=== PATIENT | male | born 1975 | race Caucasian/White ===

== ENCOUNTER 2017-12-25 07:55 | Emergency (ER) | payer MEDICAID, SELFPAY ==
[2017-12-25 08:04] VITALS: BP 111/72; PULSE 70; RESP 18; TEMP 36.7; O2SAT 98
[2017-12-25 08:56] LABS: Bilirubin Negative (Negative); Blood Negative (Negative); Clarity Clear; Glucose Negative (Negative); Ketones Negative (Negative); Leukocyte Esterase Negative (Negative); Nitrite Negative (Negative); Specific Gravity 1.025 (1.005-1.025); Urobilinogen 0.2 EU/dL (Up TO 0.2); pH 5.5 (5-8)
--- NOTE | 2017-12-25 09:10 | NUR.NOTE ---
Post void bladder scan reported to Dr Hernandez at 48 mL Nursing Note:
[2017-12-25] MEDS: Acetaminophen 500 MG TAB 1000 MG PO (09:15)
[2017-12-25] MEDS: Lidocaine 5% Patch 1 PATCH TP (09:15)
[2017-12-25] MEDS: Ibuprofen 800 MG TAB PO (09:15)
--- NOTE | 2017-12-25 09:24 | W.ED.GENAD ---
Discharge Plan Disposition Patient Disposition: HOME Condition: Good Discharge Details Chief Complaint: Nk/Back Pain Clinical Impression: Lumbago Primary Care Provider: Buddy Gomez ED Provider: Anselmo Hernandez Home Meds and New Rx's Prescriptions: New acetaminophen [Mapap Extra Strength] 500 MG tablet 1,000 mg PO Q6H 5 Days Qty: 60 RF: 0 lidocaine [Lidoderm] 1 PATCH patch 1 ea Topical Q24H Qty: 4 RF: 0 ibuprofen [Motrin IB] 200 MG tablet 600 mg PO Q6H 5 Days Qty: 60 RF: 0 cyclobenzaprine 10 mg tablet 10 mg PO TID Qty: 21 RF: 0 Discharge Instructions Instructions: Low Back Strain (ED) Additional Instructions: Please take medications as directed. Do not take the Flexeril/cyclobenzaprine if you were going to operate heavy machinery, shoot firearms, climb a ladder, work at elevated heights, or drive a vehicle. If you notice any numbness or tingling in your groin, weakness, or other abnormalities please return immediately. If you notice any bowel or bladder incontinence please return immediately. Do not lift anything greater than 10 pounds. If you notice any worsening of your symptoms, or any new symptoms such as vomiting, diarrhea, fever, chills, shortness of breath, chest pain, numbness, weakness, or fainting , please return immediately to the emergency department for reevaluation. Please follow up with your primary care provider as soon as possible for reassessment and reevaluation. As always, it was a pleasure participating in your medical care today. Stand Alone Forms: Work Release Referrals: Buddy Gomez MD [Primary Care Provider] - Discharge Data Discharge Date/Time-TO BE ENTERED AT DEPARTURE: 12/25/17 09:35 Medical Decision Making This is a pleasant 42-year-old male who presents with lower back pain, it occurred after he had been doing multiple episodes of bending and lifting over the last 24 hours. He has signs and symptoms of paraspinal low back pain. No evidence of radiculopathy, no neurologic deficits, no red flags concerning for cauda equina syndrome. Bladder scan was performed post void and he had no retained urine. Urinalysis shows no evidence of UTI or urolithiasis. The patient's symptoms improved notably with Lidoderm patch and NSAIDs. I feel his symptoms are consistent with a low back muscle sprain, with no red flags I do not feel that there is any indication for imaging at this time. Patient will be discharged home with close follow-up, we had long discussion regarding red flags for which to return the patient understands. I have extensively reviewed the treatment plan and discharge instructions with the patient and their family. I have addressed all patient concerns at this time. The patient and family was made aware of what symptoms to monitor for that would warrant a return to the emergency department. Discussed the plan with the patient and family, they demonstrate verbal understanding and agreement with our assessment and plan at this time. HPI General Date/Time Provider Initiated Documentation: 12/25/17 08:15. HPI Narrative: This is a 42-year-old male with a past medical history of kidney stones, and prior chronic back pain, who presents today for evaluation of back pain. Patient states that yesterday morning he had been doing a lot of lifting for his . He had been working in confined spaces with a significant amount of bending over, and going up and down. He states that initially his back was sore that evening however when he woke up this morning it was notably worse. It goes from the left side to the right side but he denies any pain in the center. It is made worse with movement, it is improved by heating and ibuprofen. States that this feels atypical from his history of kidney stones. He denies any radiation down his legs, any numbness or tingling in his groin, any bowel or bladder incontinence. He denies any history of cancer, recent trauma, chronic steroid use, or other complaints. He denies any history of IV drug use, or fevers or chills. Patient has no other complaints at this time. Related Data Home Medications Medication Instructions Recorded Confirmed acetaminophen [Mapap Extra 1,000 mg PO Q6H 5 Days #60 tab 12/25/17 Strength] cyclobenzaprine 10 mg PO TID #21 tab 12/25/17 ibuprofen [Motrin Ib] 600 mg PO Q6H 5 Days #60 tab 12/25/17 lidocaine [Lidoderm] 1 ea TOPICAL Q24H #4 patch 12/25/17 Previous Rx's Medication Instructions Recorded acetaminophen [Mapap Extra 1,000 mg PO Q6H 5 Days #60 tab 12/25/17 Strength] cyclobenzaprine 10 mg PO TID #21 tab 12/25/17 ibuprofen [Motrin Ib] 600 mg PO Q6H 5 Days #60 tab 12/25/17 lidocaine [Lidoderm] 1 ea TOPICAL Q24H #4 patch 12/25/17 General Stated Complaint: Nk/Back Pain RAGHAVENDRA: 4 Review of Systems Review of Systems All systems reviewed & are unremarkable except as noted in HPI and below PFSH Social History Smoking/Tobacco Use Status: Never Exam Narrative Exam Narrative: 1.Const: Well-nourished, Well-developed, appearing stated age 2.Eyes: PERRL, no conjunctival injection, and symmetrical lids. 3.ENT: Atraumatic external nose and ears. Moist MM. Neck: Symmetric, trachea midline, No thyromegaly. 4.CVS: +S1/S2, No murmurs or gallops. Peripheral pulses 2+ and equal in all extremities. Brisk capillary refill in all extremities. 5.RESP: Unlabored respiratory effort. Clear to auscultation bilaterally. No wheezes rales or rhonchi 6.GI: Soft, Nontender/Nondistended, No hepatosplenomegaly. No guarding or rebound. 7.MSK: Normocephalic/Atraumatic, Extremities w/o deformity or ttp No cyanosis or clubbing, Normal movement of all extremities. No midline tenderness to palpation over the CTLS spine. Normal ROM in flexion, extension, side bend, and rotation. Patient has +5 out of 5 strength in the lower extremities in dorsiflexion and plantarflexion, knee flexion and extension, hip flexion and extension. There is +2 over 2 dorsalis pedis pulses bilaterally. There is normal sensation to the skin with light touch at the foot, knee, and hip. Normal saddle sensation. Good sensation over the deep sural nerve area bilaterally. Rectal exam demonstrated normal rectal tone and perianal sensation. Reflexes are +2 over 4 in the patellar reflex bilaterally. +5 out of 5 strength in the medial, ulnar, radial nerve distribution bilaterally in the hands as well as intact light touch sensation to these dermatomes on the hands. Patient does have paraspinal tenderness over his erector spinae muscles, notable evidence of paraspinal muscle spasm. No CVA tenderness. No significant worsening of symptoms with straight leg raise bilaterally. 8.Skin: Warm, Dry. No rashes or lesions. 9.Neuro: cardiovascular operating room nurse II-XII grossly intact. Sensation grossly intact, no focal neurologic deficits. All 6 cardinal planes of vision are fully intact. No evidence of rotatory or vertical nystagmus. The patient demonstrated a normal [id number], good dexterity. There was no evidence of dysdiadochokinesia. Patient was able to ambulate without difficulty. There was no wide-based gait. Romberg, and [id number] are both normal on testing. Sensation was intact bilaterally as well as muscle strength bilaterally for all extremities. Patient was able to verbalize butter cup with no slurring, or miss pronunciation. 10.Psych: (AAO) x3. Appropriate mood and affect Course Vital Signs Temperature 36.7 C 12/25/17 08:04 Pulse 70 12/25/17 08:04 Respiratory Rate 18 12/25/17 08:04 Blood Pressure 111/72 12/25/17 08:04 Pulse Oximetry 98 12/25/17 08:04 Temperature 36.7 C 12/25/17 08:04 Temperature Source Temporal Artery Scan 12/25/17 08:04 Pulse 70 12/25/17 08:04 Respiratory Rate 18 12/25/17 08:04 Respiratory Effort 12/25/17 08:06 Blood Pressure 111/72 12/25/17 08:04 Blood Pressure Position Sitting 12/25/17 08:04 Pulse Oximetry 98 12/25/17 08:04 Oxygen Delivery Method Room Air 12/25/17 08:04 Oxygen Flow Rate 0 12/25/17 08:04 Pain Level 8 12/25/17 08:04 Lab/Test Results Lab/Test Results: Laboratory Tests Range/Units 12/25/17 08:50 Urine Color (Yellow) Yellow Urine Clarity Clear Urine pH (5-8) 5.5 Ur Specific Derwood (1.005-1.025) 1.025 Urine Protein (Negative) mg/dL Negative Urine Ketones (Negative) mg/dL Negative Urine Blood (Negative) Negative Urine Nitrite (Negative) Negative Urine Bilirubin (Negative) Negative Urine Urobilinogen (Up TO 0.2) EU/dL 0.2 Ur Leukocyte Esterase (Negative) Negative Urine Glucose (Negative) mg/dL Negative
[2017-12-25 09:47] VITALS: BP 111/72; PULSE 70; RESP 18; TEMP 36.7; O2SAT 98
== END 2017-12-25 09:35 | disposition home or self-care (01) ==
PROVIDERS: Emergency Provider Student in an Organized Health Care Education/Training Program; PCP Internal Medicine
DX: M54.5 Low back pain (principal)
CPT/HCPCS: 99283; 81003

== ENCOUNTER 2018-12-16 17:43 | Outpatient (REF) | payer MEDICAID, SELFPAY ==
[2018-12-16 21:22] LABS: HCT 44.4 % (40.0-50.0); HGB 15.2 g/dL (13.5-17.5); Mean Corp. HGB Concentration 34.2 g/dL (32.0-36.0); Mean Corpuscular Hemoglobin 29.1 pg (27.0-33.0); Mean Corpuscular Volume 85.1 fL (80-95); Mean Platelet Volume 11.1 fL (8.0-11.0); Platelet Count 228 x1000/uL (130-400); RBC 5.22 m/cumm (4.50-6.00); RBC Distribution Width 12.8 % (11.8-14.1); White Blood Cell Count 7.96 k/cumm (4.4-10.8)
[2018-12-16 21:38] LABS: BUN 9 mg/dL (7-18); CREATININE 1.01 mg/dL (0.70-1.30); Calcium 9.6 mg/dL (8.5-10.1); Chloride 106 mmol/L (98-107); Glucose 91 mg/dL (70-100); Potassium 4.2 mmol/L (3.5-5.1); Sodium 142 mmol/L (136-145)
== END 2018-12-16 18:03 ==
LOC: NCHCN 17:43
PROVIDERS: PCP Internal Medicine; Visit Provider Internal Medicine
DX: J20.9 Acute bronchitis, unspecified (principal); R07.89 Other chest pain; K62.5 Hemorrhage of anus and rectum
CPT/HCPCS: 80048; 85027

== ENCOUNTER 2019-09-15 10:37 | Emergency (ER) | payer MEDICAID, SELFPAY ==
[2019-09-15 10:42] VITALS: BP 149/87; PULSE 56; RESP 16; TEMP 36.5; O2SAT 100
--- NOTE | 2019-09-15 10:45 | ED.GENADUL_ITS ---
Discharge Plan Disposition Patient Disposition: HOME Condition: Stable Discharge Details Chief Complaint: RashLesion Clinical Impression: Hives Primary Care Provider: Buddy Gomez ED Provider: Toshia Torres Home Meds and New Rx's Prescriptions: New prednisone 20 mg tablet 40 mg PO DAILY Qty: 14 RF: 0 Continued lidocaine [Lidoderm] 1 PATCH patch 1 ea Topical Q24H Qty: 4 RF: 0 cyclobenzaprine 10 mg tablet 10 mg PO TID Qty: 21 RF: 0 Discharge Instructions Instructions: Urticaria (ED) Additional Instructions: Take steroids as directed Follow-up with primary care provider Referrals: Buddy Gomez MD [Primary Care Provider] - Medical Decision Making Patient presents with generalized hives with no known new exposure he has had a symptoms for 3 weeks and has no respiratory symptoms or other issues. He has been using Benadryl without good effect. We will treat him with steroids and refer to PCP for possible further testing as warranted Medical Records Medical records reviewed: Yes I reviewed the patient's medical records. HPI General Mode of arrival: ambulatory . Date/Time Provider Initiated Documentation: 09/15/19 10:41 . Limitations to Documentation: no limitations . Information obtained by: patient . HPI Narrative: Patient presents to the emergency department with a 3-week history of hives that started on his bilateral torso. He has been using Benadryl with no relief. He has not identified any new exposures. There is been no new medication no new laundry soap diet is consistent. He now has hives on his arms legs back in addition to his torso and abdomen. He has had no fevers no other complaints. He has no difficulty swallowing sore throat shortness of breath or wheezing. Related Data Home Medications Medication Instructions Recorded Confirmed cyclobenzaprine 10 mg PO TID #21 tab 12/25/17 lidocaine [Lidoderm] 1 ea TOPICAL Q24H #4 patch 12/25/17 prednisone 40 mg PO DAILY #14 tab 09/15/19 Previous Rx's Medication Instructions Recorded cyclobenzaprine 10 mg PO TID #21 tab 12/25/17 lidocaine [Lidoderm] 1 ea TOPICAL Q24H #4 patch 12/25/17 prednisone 40 mg PO DAILY #14 tab 09/15/19 Allergies Allergy/AdvReac Type Severity Reaction Status Date / Time No Known Allergies Allergy Unverified 09/15/19 10:45 General Stated Complaint: RashLesion RAGHAVENDRA: 4 Review of Systems Constitutional Constitutional: Denies fever(s) Integumentary/Breasts Skin/Breast: Reports rash (Consistent with hives, generalized) PFSH Social History Smoking/Tobacco Use Status: Never Drug use: Never Do you feel safe in your relationship?: Yes Course Vital Signs Vital signs: Vital Signs Temperature 36.5 C 09/15/19 10:42 Pulse 56 L 09/15/19 10:42 Respiratory Rate 16 09/15/19 10:42 Blood Pressure 149/87 H 09/15/19 10:42 Pulse Oximetry 100 09/15/19 10:42 Temperature 36.5 C 09/15/19 10:42 Temperature Source Skin 09/15/19 10:42 Pulse 56 L 09/15/19 10:42 Respiratory Rate 16 09/15/19 10:42 Blood Pressure 149/87 H 09/15/19 10:42 Blood Pressure Position Sitting 09/15/19 10:42 Pulse Oximetry 100 09/15/19 10:42 Oxygen Delivery Method Room Air 09/15/19 10:42 Oxygen Flow Rate 0 09/15/19 10:42 Pain Level 0 09/15/19 10:42
== END 2019-09-15 11:16 | disposition home or self-care (01) ==
PROVIDERS: Emergency Provider Nurse Practitioner Acute Care; PCP Internal Medicine
DX: L50.8 Other urticaria (principal)
CPT/HCPCS: 99283; 99281

== ENCOUNTER 2020-01-19 13:22 | Outpatient (REF) | payer MEDICAID, SELFPAY ==
[2020-01-19 20:58] LABS: Abs Immature Grans 0.04 10^3/uL (0.0-0.06); Absolute Basophil Count 0.01 10^3/uL (0.0-0.2); Absolute Eosinophil Count 0.12 10^3/uL (0.0-0.7); Absolute Lymphocyte Count 2.33 10^3/uL (1.2-3.4); Absolute Monocyte Count 0.71 10^3/uL (0.1-0.8); Absolute Neutrophil Count 6.17 10^3/uL (1.2-6.7); Basophils % 0.1; Eosinophils % 1.3; HGB 15.8 g/dL (13.5-17.5); Immature Grans % 0.4; Lymphocytes % 24.8; MCH 29.6 pg (27.0-33.0); MCHC 34.3 % (32.0-36.0); MCV 86.1 fL (80-95); MPV 11.3 fL (8.0-11.0); Monocytes % 7.6; Neutrophils % 65.8; Nucleated RBC 0 %; Platelet Count 224 10^3/uL (130-400); RBC 5.34 10^6/uL (4.36-5.78); RDW 11.9 % (11.8-14.1); RDW-SD 37.4 fL; WBC 9.38 10^3/uL (4.4-10.8)
[2020-01-19 21:21] LABS: TSH 3.07 uIU/mL (0.36-3.74)
[2020-01-19 22:14] LABS: ESR 10 mm/hr (0-15)
== END 2020-01-19 13:42 ==
LOC: NCHCN 13:22
PROVIDERS: PCP Internal Medicine; Visit Provider Internal Medicine
DX: L50.9 Urticaria, unspecified (principal); K62.5 Hemorrhage of anus and rectum
CPT/HCPCS: 85652; 84443; 85025

== ENCOUNTER 2020-02-11 01:02 | Outpatient (CLI) | payer MEDICAID, SELFPAY ==
--- NOTE | 2020-02-11 10:30 | DI.US_ITS ---
APPROVED REPORT EXAM: Comprehensive 2D, Doppler, and color-flow Echocardiogram Patient Location: Out-Patient Linotype Mechanic: Sharmaine Mc RDCS (AE) Indications: Family H/O Cardiovascular disease Other Information Study Quality: Adequate Conclusion Left Ventricle : The left ventricle is normal size. The left ventricular systolic function is normal. The left ventricular ejection fraction is within the normal range. There is normal left ventricular wall thickness. There is normal LV segmental wall motion. The left ventricular diastolic function is normal. LVEF is 60%. Right Ventricle : The right ventricle is normal size. The right ventricular systolic function is norm al. The RVSP is 18.0 mmHg. Atria : The left atrium size is normal. The right atrium size is normal. Valves: There are no hemodynamically significant valvular lesions. Great Vessels : The aortic root is normal in size. The ascending aorta is normal in size. Aortic arch is normal in caliber. IVC is normal in size and collapses >50% with inspiration. Compared to study from 02/21/2017: There is no change. Wall motion Left Ventricle The left ventricle is normal size. The left ventricular systolic function is normal. The left ventric ular ejection fraction is within the normal range. There is normal left ventricular wall thickness. T here is normal LV segmental wall motion. The left ventricular diastolic function is normal. There is no ventricular septal defect visualized. LVEF is 60%. Right Ventricle The right ventricle is normal size. The right ventricular systolic function is normal. The RVSP is 18 .0 mmHg. Atria The left atrium size is normal. The right atrium size is normal. The interatrial septum is intact wit h no evidence for an atrial septal defect. Aortic Valve The aortic valve is normal in structure. Aortic valve is trileaflet. There is no aortic valvular sten osis. No aortic regurgitation is present. Mitral Valve The mitral valve is normal in structure. No evidence of mitral valve stenosis. Trace mitral regurgita tion. Tricuspid Valve The tricuspid valve is normal in structure. There is no tricuspid valve stenosis. Mild tricuspid regu rgitation. Pulmonic Valve The pulmonary valve is normal in structure. There is no pulmonic valvular stenosis. There is no pulmo oswald valvular regurgitation. Great Vessels The aortic root is normal in size. The ascending aorta is normal in size. Aortic arch is normal in ca liber. IVC is normal in size and collapses >50% with inspiration. Pericardium There is no pericardial effusion. 2D Dimensions IVSD d PLAX 0.84 cm M: 0.6-1.2 LV Vol A2C d MOD 139.2 mL LVPW d PLAX 0.87 cm M: 0.6 - 1.2 LV Vol A4C d MOD 125.7 mL LVID d PLAX 5.19 cm M: 4.2 - 5.8 LA vol/ BSA A2C s A-L 26.2 mL/m2 LVDs 3.40 cm M: 2.5 - 4.0 LA vol/ BSA A4C s A-L 20.1 mL/m2 Ao Root d 3.17 cm M: 3.1 - 3.7 LA Vol/ BSA Biplane s A-L 24.4 mL/m2 RA Area A4C 17.51 cm2 LA Area A4C s MOD 18.43 cm2 RA Vol/ BSA A4C s A-L 22.0 mL/m2 LA Area A2C s MOD 19.78 cm2 Ao Asc Diam d 3.30 cm M: 2.6 - 3.4 LV EF A4C MOD 60.1 % LV EF Teichholz 62.2 % LV EF A2C MOD 58.3 % LVEF (Morales's) 58.37 % M: 52 - 72 LV EF Biplane MOD 58.4 % LV Volume 95.08 mL M: 62 - 150 SV 77.42 mL LV Volume Index 41.33 mL/m2 M: 34 - 74 SV Index 33.59 mL/m2 LV Vol Biplane MOD 132.6 mL FS 33.75 % M-Mode TAPSE 2.06 cm (M/F) >1.7 LV Diastology MV E' medial 0.103 (>0.07 m/s) E/A Ratio 1.2 LV E/e MED 6.95 (<14) MV E Vmax 0.72 (0.4-1.3 m/s) MV E' lateral 0.176 (>0.1 m/s) MV A Vmax 0.60 (0.4-1.3 m/s) LV E/e LAT 4.05 (<14) MV E/A Ratio 1.15 MV E/E' medial 6.98 MV E/E' lateral 4.07 Aortic Valve LVOT Area 3.39 cm2 AoV Area Vmax 2.56 cm2 LVOT Vmax 1.05 m/s AoV Area/ BSA (Vmax) 1.11 cm2/m2 LVOT Mean Eris. 0.64 m/s DC Mean Eris. 2.30 cm2 LVOT Peak Grad 4.4 mmHg DC Mean Eris. Index 1.00 cm2/m2 LVOT Mean Grad 2.0 mmHg LVOT VTI 0.231 m LVOT Diam s 2.05 cm AoV Vmax 1.40 m/s Velocity Ratio 0.75 AoV Mean Eris. 0.94 m/s AoV Peak Grad 7.8 mmHg LVOT SV 78.26 mL AoV Mean Grad 4.2 mmHg AoV VTI 0.256 m AoV Area VTI 3.05 cm2 AoV Area/ BSA (VTI) 1.32 cm/m2 Mitral Valve MV DT 232 (160-240 msec) MV PHT 67 msec MV Area PHT 3.27 cm2 MV VTI 0.322 m MV VTI Annulus 0.335 m MV Area VTI 2.54 (4.0-6.0 cm2) Pulmonary Valve PV Vmax 1.11 (0.5-1.5 m/s) RVOT Peak Gr. 2.58 mmHg PV Peak Grad 4.9 mmHg RVOT Mean Gr. 1.20 mmHg PV Mean Grad 2.5 mmHg RVOT VTI 0.178 m PV VTI 0.240 m RVOT Vmax 0.80 m/s Tricuspid Valve TR Peak Grad 14.9 mmHg TR Vmax 1.94 m/s RA Pressure 3.00 mmHg RVSP (TR) 18.0 mmHg
== END 2020-02-11 01:22 ==
PROVIDERS: PCP Internal Medicine; Visit Provider Internal Medicine
DX: Z82.49 Family history of ischemic heart disease and other diseases of the circulatory system (principal)
CPT/HCPCS: 93306

== ENCOUNTER 2021-05-06 01:38 | Outpatient (CLI) | payer MEDICAID, SELFPAY ==
[2021-05-06 15:16] LABS: Abs Immature Grans 0.02 10^3/uL (0.0-0.06); Absolute Basophil Count 0.01 10^3/uL (0.0-0.2); Absolute Lymphocyte Count 1.85 10^3/uL (1.2-3.4); Absolute Monocyte Count 0.51 10^3/uL (0.1-0.8); Absolute Neutrophil Count 3.33 10^3/uL (1.2-6.7); Basophils % 0.2; Eosinophils % 3.4; HCT 44.2 % (40.0-50.0); HGB 14.8 g/dL (13.5-17.5); Immature Grans % 0.3; Lymphocytes % 31.3; MCH 28.6 pg (27.0-33.0); MCHC 33.5 % (32.0-36.0); MCV 85.3 fL (80-95); MPV 10.5 fL (8.0-11.0); Monocytes % 8.6; Neutrophils % 56.2; Nucleated RBC 0 %; Platelet Count 206 10^3/uL (130-400); RBC 5.18 10^6/uL (4.36-5.78); RDW 12.3 % (11.8-14.1); RDW-SD 38.2 fL; WBC 5.92 10^3/uL (4.4-10.8)
[2021-05-06 16:07] LABS: ALT 27 U/L (16-63); AST 17 U/L (15-37); Albumin 4.1 g/dL (3.4-5.0); Alkaline Phosphatase 84 U/L (46-116); Anion Gap 6.6 mmol/L (3-11); BUN 13 mg/dL (7-18); Bilirubin, Total 0.4 mg/dL (0.2-1.0); C-Reactive Protein 0.08 mg/dL (0.0-0.3); CO2 30.4 mmol/L (21.0-32.0); Calcium 8.8 mg/dL (8.5-10.1); Chloride 106 mmol/L (98-107); Glucose 99 mg/dL (74-106); Potassium 4.1 mmol/L (3.5-5.1); Sodium 143 mmol/L (136-145); Total Protein 7.1 g/dL (6.4-8.2)
== END 2021-05-06 01:39 | disposition home or self-care (01) ==
LOC: LBO 01:38
PROVIDERS: PCP Internal Medicine; Visit Provider Surgery
DX: K62.5 Hemorrhage of anus and rectum (principal); L50.8 Other urticaria
CPT/HCPCS: 36415; 80053; 85025; 86140

== ENCOUNTER 2021-05-23 04:07 | Outpatient (CLI) | payer MEDICAID, SELFPAY ==
[2021-05-23 10:43] LABS: Source Nasal/Nares
[2021-05-23 23:09] LABS: COVID-19 PCR Negative (Negative)
== END 2021-05-23 04:08 | disposition home or self-care (01) ==
LOC: LBO 04:07
PROVIDERS: PCP Internal Medicine; Visit Provider Surgery
DX: Z20.822 Contact with and (suspected) exposure to COVID-19 (principal); Z01.818 Encounter for other preprocedural examination
CPT/HCPCS: 87635

== ENCOUNTER 2021-05-24 08:28 | Day surgery (SDC) | payer MEDICAID, SELFPAY ==
--- NOTE | 2021-05-24 06:56 | ANES.PREOP_ITS ---
General Info Date of Service Date Performed: 05/24/21 Height: 6 ft 1 in Weight: 104 kg Body Mass Index (BMI): 30.2 Surgical Procedure: Operation Date: 05/24/21 12:35 Proposed Procedure Side Surgeon frida Moura, Meds Allergies and Home Medications Allergies Allergy/AdvReac Type Severity Reaction Status Date / Time No Known Allergies Allergy Unverified 05/24/21 08:51 Home Medication Medication Instructions Recorded acetaminophen 500 mg capsule 1,000 mg PO Q6H PRN cap 01/23/20 ibuprofen 600 mg tablet 600 mg PO Q8H PRN 01/23/20 cetirizine 10 mg tablet 10 mg PO DAILY tab 04/11/21 hydroxychloroquine 200 mg tablet 200 mg PO DAILY 04/11/21 albuterol sulfate 90 mcg/actuation 2 puff INHALATION Q6H PRN 04/13/21 aerosol inhaler (ProAir HFA) montelukast 10 mg tablet 10 mg PO DAILY 04/13/21 bisacodyl 5 mg tablet,delayed 5 mg PO ONCE #4 tab 05/05/21 release (Dulcolax (bisacodyl)) polyethylene glycol 3350 17 238 g PO ONCE #238 g 05/05/21 gram/dose oral powder Current Visit Medications: Current Medications Generic Name Dose Route Start Last Admin Trade Name Freq PRN Reason Stop Dose Admin Hyoscyamine Sulfate 0.125 mg 05/23/21 10:53 Hyoscyamine 0.125 Mg Sl/Oral/Chew SL DIRECTED PRN Ringer's Solution 1,000 mls @ 80 mls/hr 05/24/21 06:00 IV 06/22/21 23:59 INFUSION [facility] IV Miscellaneous Supplies 1 each 05/24/21 06:00 Iv Access IV 06/22/21 23:59 DIRECTED NEVAEH Ondansetron HCl 4 mg 05/23/21 10:53 Ondansetron 4 Mg/2 Ml Vial IVP Q4H PRN PRN Nausea / Vomiting Sodium Chloride 0 ml 05/24/21 06:00 Normal Saline Flush 10 Ml Syr IV 06/22/21 23:59 PRN PRN Sodium Chloride 0 ml 05/24/21 06:00 Normal Saline 10 Ml Vial IJ 06/22/21 23:59 DIRECTED PRN Sterile Water 0 ml 05/24/21 06:00 Water,Injection,Sterile 10 Ml Vial IJ 06/22/21 23:59 DIRECTED PRN [facility] Medical History Medical History Chronic urticaria Family history of other cardiovascular diseases History of kidney stones Lumbar back pain Rectal bleeding Surgical History Surgical History History of tonsillectomy Tobacco Smoking/Tobacco Use Status: Never Alcohol Alcohol Intake: current Alcohol intake frequency: holidays/special occasions only Alcohol type: beer Substance Use Substance use: Never Vital Signs and Lab Results Vital Signs Most Recent Vital Signs in EMR: Temp Pulse Resp BP Pulse Ox 36.4 C L 81 16 126/89 98 05/24/21 08:58 05/24/21 08:58 05/24/21 08:58 05/24/21 08:58 05/24/21 08:58 Lab Results Blood Type / Crossmatch: No Data to Display Complete Blood Count: White Blood Count 5.92 10^3/uL (4.4-10.8) 05/06/21 14:55 05/06/21 Red Blood Count 5.18 10^6/uL (4.36-5.78) 05/06/21 14:55 05/06/21 Hemoglobin 14.8 g/dL (13.5-17.5) 05/06/21 14:55 05/06/21 Hematocrit 44.2 % (40.0-50.0) 05/06/21 14:55 05/06/21 Platelet Count 206 10^3/uL (130-400) 05/06/21 14:55 05/06/21 Complete Metabolic Panel: Sodium Level 143 mmol/L (136-145) 05/06/21 14:55 05/06/21 Potassium Level 4.1 mmol/L (3.5-5.1) 05/06/21 14:55 05/06/21 Chloride Level 106 mmol/L (98-107) 05/06/21 14:55 05/06/21 Carbon Dioxide Level 30.4 mmol/L (21.0-32.0) 05/06/21 14:55 05/06/21 Blood Urea Nitrogen 13 mg/dL (7-18) 05/06/21 14:55 05/06/21 Creatinine 1.0 mg/dL (0.70-1.30) 05/06/21 14:55 05/06/21 Estimated GFR/1.73 m2 >= 60.00 (mL/min/1.73m2) 05/06/21 14:55 05/06/21 Calcium Level 8.8 mg/dL (8.5-10.1) 05/06/21 14:55 05/06/21 Albumin 4.1 g/dL (3.4-5.0) 05/06/21 14:55 05/06/21 Glucose Level 99 mg/dL (74-106) 05/06/21 14:55 05/06/21 C-Reactive Protein 0.08 mg/dL (0.0-0.3) 05/06/21 14:55 05/06/21 Liver Function Panel: Alanine Aminotransferase (ALT/SGPT) 27 U/L (16-63) 05/06/21 14:55 05/06/21 Aspartate Amino Transf (AST/SGOT) 17 U/L (15-37) 05/06/21 14:55 05/06/21 Coagulation Panel: No Data to Display Cardiac Panel: No Data to Display Arterial Blood Gas: No Data to Display Venous Blood Gas: No Data to Display Pancreas Panel: No Data to Display Thyroid Panel: No Data to Display Infectious Disease: Coronavirus (COVID-19)(PCR) Negative (Negative) 05/23/21 09:30 05/23/21 Coronavirus 2019 Source Nasal/Nares 05/23/21 09:30 05/23/21 Blood Cultures: No Data to Display Toxicology Panel: No Data to Display Imaging and Studies Imaging and Studies Study information below may be from another EMR and interpreted by another provider. Please see original notes in EMR for more complete details. Echocardiogram Summary: 02/07: LVEF 60%, RVSP 18 mmhg, no hemodynamically sig valve issues. Anesthesia Assessment and Plan Anesthesia History Personal History: No History of Anesthesia Complications Family History: No Family History of Anesthesia Complications Exercise Tolerance Exercise Tolerance: Metabolic Equivalents>4 Cardiac & Pulmonary Exam Cardiac Exam: Normal S1/S2 Heart Sounds Pulmonary Exam: Clear Bilateral Breath Sounds Implantable Cardiac Device Does patient have a Pacemaker or an ICD?: No Airway Exam Known Difficult Airway: No Mallampati Class: 2 Mouth Opening: Normal (> 3cm) Thyromental Distance: Greater than 3 cm Neck Range of Motion: Full ROM Neck Circumference: Normal Teeth Condition: Normal Dentition Airway Comments: missing front uppers. ASA Classification ASA Score: ASA 2 Emergency Case?: No NPO Status NPO Status: NPO Clears >2 hours, Solids >8 hours Anesthesia Plan Resuscitation Status: Full Code Anesthesia Technique: General Anesthesia Airway Planned: Natural Airway Monitors Used: Standard Monitors Preoperative Comments:: 46 yo male with rectal bleeding for colonoscopy. Sig PMHx: no major, never smoker, occ EtOH. Is being worked up for chronic urticaria.
[2021-05-24 08:58] VITALS: BP 126/89; PULSE 81; RESP 16; TEMP 36.4; O2SAT 98
[2021-05-24] MEDS: Lactated Ringers 1,000 ML 80 ML IV (09:22)
[2021-05-24 09:26] VITALS: BMI 30.2
--- NOTE | 2021-05-24 11:00 | BOWEL_PTH ---
PATIENT: Tushar Keating LOC: [facility] U#:[id number] AGE/SX: 46/M ROOM: RE05/24/[address]: Yesenia Moura : 1975 BED: DIS: 05/24/2021 SPEC #: [id number] RECD: 05/24/21 12:44 STATUS: GARIMA RE #: [id number] LINDA: 05/24/21 11:[address]: Yesenia Moura DEPT: Surgical Specimen RECD BY: Kinjal Chadwick ENTERED: 05/24/21 12:45 SP TYPE: Bowel OTHR DR: Buddy Gomez Tissues: 1 - BIOPSY BOWEL 2 - BIOPSY BOWEL 3 - BIOPSY BOWEL 4 - BIOPSY BOWEL Procedures: GROSS AND MICRO LEVEL 4 Comments: [id number]
--- NOTE | 2021-05-24 11:28 | PDOC.DSDIS_ITS ---
Discharge Plan Disposition Patient Disposition: HOME Condition: Good Discharge Details Reason For Visit: colon scope Attending Provider: Yesenia Moura Primary Care Provider: Buddy Gomez Home Meds and New Rx's Prescriptions: Continued ibuprofen 600 mg tablet 600 mg PO Q8H PRN0RF acetaminophen 500 mg capsule 1,000 mg PO Q6H PRN0RF cetirizine 10 mg tablet 10 mg PO DAILY 0RF hydroxychloroquine 200 mg tablet 200 mg PO DAILY 0RF montelukast 10 mg tablet 10 mg PO DAILY 0RF albuterol sulfate [ProAir HFA] 90 mcg/actuation HFA aerosol inhaler 2 puff inhalation Q6H PRN0RF Label Comments: pt. only uses if hives are flairing up Discontinued polyethylene glycol 3350 17 gram/dose powder 238 g PO ONCE Qty: 238 0RF Rx Instructions: take per colonoscopy instructions bisacodyl [Dulcolax (bisacodyl)] 5 mg tablet,delayed release (DR/EC) 5 mg PO ONCE Qty: 4 0RF Rx Instructions: take per colonoscopy instructions Discharge Instructions Additional Instructions: DSU Colonoscopy Post- Op Instructions Instructions for Everyone who is given Anesthesia: For your safety, please do the following for the next twenty-four (24) hours: *Do Not operate a motor vehicle (car, truck, motorcycle, etc.) *Do Not drink alcoholic beverages or use any recreational drugs for the first 72 hours or while taking pain medications. The medications in your body may have a reaction that can be dangerous. *Do Not make any important decisions or sign any important papers. Findings:multiple polyps x4 diverticula- minor Follow up:repeat colonoscopy in 1 years time -no ASA/NSAID's for 2 weeks 1. No lifting over 20 pounds or strenuous activity for the first 72 hours after your procedure. After 72 hours there are no restrictions on your activity but you may feel fatigued for a few days. 2. After you arrive home you may have a light meal and return to your normal diet as you can tolerate it without feeling sick to your stomach. 3. You may have a bloated, gaseous feeling in your belly (abdomen) after a colonoscopy. Passing gas and belching will help. Walking or lying down on your left side with your knees flexed may relieve the discomfort. Call the office at [phone] (Office) or [phone] (Hospital) right away if you notice any of the following: a.Vomiting of blood or ?coffee ground stools?. b.Rectal bleeding 1Tbsp, blood clots or continuous bleeding. c.Severe belly (abdominal) pain. d.A hard distended belly (abdomen) and an inability to pass gas. 4. Please don?t expect to have a normal BM (bowel movement) for 2-3 days after your procedure. 5. If there are questions regarding the findings of your procedure, please contact your doctor 6. If you are unable to contact your doctor with a problem, contact the hospital at [phone]. 7. Continue all your regular medications unless directed otherwise. I understand the above instructions and have no questions. Signature of Patient or Adult Escort Name of Responsible Adult Escort Signature of Nurse Date/Time Activity:: see above Diet:: see above Discharge Orders Discharge Orders: Discharge Order (Routine); Ordered 05/23/21 Ordered By: Yesenia Moura
[2021-05-24 11:31] VITALS: BP 123/77; PULSE 84; RESP 15; TEMP 36.4; O2SAT 95
--- NOTE | 2021-05-24 11:39 | W.PM.DSUDISC ---
Discharge Plan Disposition Patient Disposition: HOME Condition: Good Discharge Details Reason For Visit: colon scope Attending Provider: Yesenia Moura Primary Care Provider: Buddy Gomez Home Meds and New Rx's Prescriptions: Continued ibuprofen 600 mg tablet 600 mg PO Q8H PRN0RF acetaminophen 500 mg capsule 1,000 mg PO Q6H PRN0RF cetirizine 10 mg tablet 10 mg PO DAILY 0RF hydroxychloroquine 200 mg tablet 200 mg PO DAILY 0RF montelukast 10 mg tablet 10 mg PO DAILY 0RF albuterol sulfate [ProAir HFA] 90 mcg/actuation HFA aerosol inhaler 2 puff inhalation Q6H PRN0RF Label Comments: pt. only uses if hives are flairing up Discontinued polyethylene glycol 3350 17 gram/dose powder 238 g PO ONCE Qty: 238 0RF Rx Instructions: take per colonoscopy instructions bisacodyl [Dulcolax (bisacodyl)] 5 mg tablet,delayed release (DR/EC) 5 mg PO ONCE Qty: 4 0RF Rx Instructions: take per colonoscopy instructions Discharge Instructions Instructions: Colorectal Polyps (GEN) Additional Instructions: DSU Colonoscopy Post-Op Instructions Instructions for Everyone who is given Anesthesia: For your safety, please do the following for the next twenty-four (24) hours: *Do Not operate a motor vehicle (car, truck, motorcycle, etc.) *Do Not drink alcoholic beverages or use any recreational drugs for the first 72 hours or while taking pain medications. The medications in your body may have a reaction that can be dangerous. *Do Not make any important decisions or sign any important papers. Findings:multiple polyps x4 diverticula- minor Follow up:repeat colonoscopy in 1 years time -no ASA/NSAID's for 2 weeks 1. No lifting over 20 pounds or strenuous activity for the first 72 hours after your procedure. After 72 hours there are no restrictions on your activity but you may feel fatigued for a few days. 2. After you arrive home you may have a light meal and return to your normal diet as you can tolerate it without feeling sick to your stomach. 3. You may have a bloated, gaseous feeling in your belly (abdomen) after a colonoscopy. Passing gas and belching will help. Walking or lying down on your left side with your knees flexed may relieve the discomfort. Call the office at [phone] (Office) or [phone] (Hospital) right away if you notice any of the following: a.Vomiting of blood or ?coffee ground stools?. b.Rectal bleeding 1Tbsp, blood clots or continuous bleeding. c.Severe belly (abdominal) pain. d.A hard distended belly (abdomen) and an inability to pass gas. 4. Please don?t expect to have a normal BM (bowel movement) for 2-3 days after your procedure. 5. If there are questions regarding the findings of your procedure, please contact your doctor 6. If you are unable to contact your doctor with a problem, contact the hospital at [phone]. 7. Continue all your regular medications unless directed otherwise. I understand the above instructions and have no questions. Signature of Patient or Adult Escort Name of Responsible Adult Escort Signature of Nurse Date/Time Stand Alone Forms: Anesthesia Discharge , David Muse (DSU) Activity:: see above Diet:: see above Discharge Orders Discharge Orders: Discharge Order (Routine); Ordered 05/23/21 Ordered By: Yesenia Moura Discharge Data Discharge Date/Time-TO BE ENTERED AT DEPARTURE: 05/24/21 12:39
--- NOTE | 2021-05-24 11:57 | W.ANESPOSTOP ---
Postoperative Evaluation Date, Time and Location Date Performed: 05/24/21 Time Performed: 11:57 Patient Location: Day Surgery Unit Vital Signs Most Recent Imported Vital Signs: Most Recent Vital Signs Temp Pulse Resp BP Pulse Ox 36.4 C L 84 15 123/77 95 05/24/21 11:31 05/24/21 11:31 05/24/21 11:31 05/24/21 11:31 05/24/21 11:31 Pain Score Most Recent Pain Score: Most Recent Pain Score Pain Level 0 05/24/21 08:58 Assessment Mental Status: Awake (Alert & Oriented to Patient Baseline) Airway and Respiratory Function: Patent airway with normal (patient baseline) respiratory exam Cardiovascular Function: Hemodynamically Stable Hydration Status: Adequately Hydrated Nausea & Vomiting: No Nausea or Vomiting Pain: Pt. Denies Any Pain Peripheral Nerve Block: Patient did not receive a nerve block
[2021-05-24 12:05] VITALS: BP 126/92; PULSE 62; RESP 16; TEMP 36.1; O2SAT 99
--- NOTE | 2021-05-25 22:16 | W.COLOREPORT ---
Colonoscopy Report Date of procedure: 05/25/21 Pre-op diagnosis general: Rectal bleeding Post-op diagnosis procedure note: same Procedure: X4 polypectomies Surgeon: Yesenia Moura Anesthesia Type: General:No Airway Prep: Miralax/Dulcolax Retraction Time: 25 Procedure Description: After informed consent was obtained the patient was taken to the procedure room and placed in a left decubitous position. Monitors were applied and a time out was done. The patients name, date of , procedure, allergies to medications and metal in their body was reviewed. The patient was then sedated. Once sedated and comfortable a rectal exam was done. External exam was normal. Internal exam revealed a normal sphincter tone and no palpable masses. The prostate nl The scope was then introduced and retrofelexed. No internal hemorrhoids were identified. The scope was then advanced to the cecum withoutdifficulty. The TI and appendiceal orifice were identified. The prep was be BPS 3 in all segments for a total of 9. The scope was then slowly retracted over 25 minutes back into the rectum. He had several polyps removed. The first is a 1 cm polyp that is not on a long pedicle and sessile this is removed with a hot snare and a clip applied. All specimen is retrieved and no bleeding is noted the second was even smaller 0.75 cm polyp and this is removed with a cold snare as well. There is a large polyp at 30 cm. 2.5 cm pedunculated polyp is is removed with a hot snare clip was used as well. there is another large 2 cm polyp at 20 cm. This is removed with a hot polypectomy snare and a clip is placed. All specimens are retrieved and no bleeding is noted. He does have very minor diverticular disease confined to the sigmoid colonthe colonoscope is a removed and the patient was woken up and taken back to Same day surgery in stable condition. The patient tolerated the procedure well and there were no immediate complications. Follow up: The patient should follow up in 1 years unless they develop changes in bowel habits or other new gastrointestinal complaints.
== END 2021-05-24 12:39 | disposition home or self-care (01) ==
PROVIDERS: PCP Internal Medicine; Visit Provider Surgery
PROC: 0DJD8ZZ Inspection of Lower Intestinal Tract, Via Natural or Artificial Opening Endoscopic (ICD-10-PCS; CPT 45378; principal; 2021-05-24 12:30)
DX: K62.5 Hemorrhage of anus and rectum (principal); K63.5 Polyp of colon
CPT/HCPCS: 45380; 88305; J2704